=== PATIENT | female | born 1970 | race African-American/Black ===

== ENCOUNTER 2018-04-29 16:17 | Emergency (ER) | payer OTHER ==
[2018-04-29 16:40] VITALS: BP 136/82; PULSE 66; TEMP 98.3; BMI 35.5
--- NOTE | 2018-04-29 17:14 | PDOC ---
History of Present Illness - General Chief Complaint: Injury Stated Complaint: INJURY - History of Present Illness Initial Comments: 47-year-old female without any significant comorbidities only depression which she takes Celexa for presents for evaluation of headache after trauma. She states she was hit by a steel beam while at work on the left side of her head. She denies nausea or vomiting but she does have a progressively increasing headache on the right side. She was hit on the left side of her head. 04/29/18 17:12 Past History - Past Medical History Allergies/Adverse Reactions: Allergies Allergy/AdvReac Type Severity Reaction Status Date / Time codeine Allergy Verified 04/29/18 16:37 Home Medications: Ambulatory Orders NK [No Known Home Medication] 04/29/18 COPD: No GI Disorders: Yes (GERD) - Suicide/Smoking/Psychosocial Hx Smoking History: Never smoked Have you smoked in the past 12 months: No Information on smoking cessation initiated: No Hx Alcohol Use: No Drug/Substance Use Hx: No Substance Use Type: None Review of Systems - Review of Systems Neurological: Yes: Headache All Other Systems: Reviewed and Negative *Physical Exam - Vital Signs Last Vital Signs Temp Pulse Resp BP Pulse Ox 98.3 F 66 18 136/82 100 04/29/18 16:37 04/29/18 16:37 04/29/18 16:37 04/29/18 16:37 04/29/18 16:37 - Physical Exam Comments: GENERAL: The patient is awake, alert, and fully oriented, in no acute distress. HEAD: There is a small dermal avulsion on the anterior aspect of the left parietal scalp EYES: Pupils equal, round and reactive to light, extraocular movements intact, sclera anicteric, conjunctiva clear. ENT: Ears normal, nares patent, oropharynx clear without exudates. Moist mucous membranes. NECK: Normal range of motion, supple without lymphadenopathy, JVD, or masses. LUNGS: Breath sounds equal, clear to auscultation bilaterally. No wheezes, and no crackles. HEART: Regular rate and rhythm, normal S1 and S2 without murmur, rub or gallop. ABDOMEN: Soft, nontender, normoactive bowel sounds. No guarding, no rebound. No masses. EXTREMITIES: Normal range of motion, no edema. No clubbing or cyanosis. No cords, erythema, or tenderness. NEUROLOGICAL: Cranial nerves II through XII grossly intact. Normal speech, normal gait. Romberg is negative PSYCH: Normal mood, normal affect. SKIN: Warm, Dry, normal turgor, no rashes or lesions noted. 04/29/18 17:12 ED Treatment Course - RADIOLOGY Radiology Studies Ordered: Category Date Time Status HEAD CT WITHOUT CONTRAST [CT] Stat CT Scan 04/29/18 17:11 Ordered Medical Decision Making - Medical Decision Making I will get a CAT scan of her head her headache is getting progressively worse since her injury 04/29/18 17:13 *DC/Admit/Observation/Transfer Diagnosis at time of Disposition: Closed head injury - Discharge Dispostion Disposition: HOME Condition at time of disposition: Stable Decision to Admit order: No - Referrals Referrals: Omid Zaldivar [Non Staff, Medical] - - Patient Instructions Printed Discharge Instructions: DI for Closed Head Injury Additional Instructions: Your CAT scan today was negative. Only take Tylenol for pain. Avoid strenuous activities. Follow-up with your primary care physician within the next 1-2 days for clearance back to work. He should not work or do any strenuous activity or you have a headache. He may only take Tylenol for your headache at this point. - Post Discharge Activity
== END 2018-04-29 19:27 | disposition home or self-care (01) ==
LOC: JERFT 16:17
DX: S09.90XA Unspecified injury of head, initial encounter (principal); W22.09XA Striking against other stationary object, initial encounter; Y93.89 Activity, other specified; Y92.9 Unspecified place or not applicable; Y99.0 Civilian activity done for income or pay
CPT/HCPCS: 70450-TC; 84703; 99281-25

== ENCOUNTER 2019-04-11 09:34 | Emergency (ER) | payer BC | END 2019-04-11 10:15 | disposition home or self-care (01) | LOC: FER 09:34 ==

== ENCOUNTER 2020-07-03 19:33 | Emergency (ER) | payer BC, OTHER ==
[2020-07-03 19:38] VITALS: BP 167/72; PULSE 84; TEMP 98.4; BMI 37.1
[2020-07-03] MEDS ORDERED: IBUPROFEN 400 MG TABLET (FP) PO ONE ×2 (20:56→21:44)
--- NOTE | 2020-07-03 21:12 | PDOC ---
History of Present Illness - General Chief Complaint: Edema Stated Complaint: R LEG PAIN Time Seen by Provider: 07/03/20 20:21 History Source: Patient Exam Limitations: No Limitations - History of Present Illness Initial Comments: 07/03/20 21:01 HISTORY OF PRESENT ILLNESS: 50-year-old female presents emergency department for right leg pain since 06/20. Patient reports she [place] the [employer] when she was trying to stop the rental car accidentally got her right leg caught underneath the wheels of the cart. Patient is now had swelling in her right lower leg and pain to the calf. Patient has not had any evaluation since the injury occurred. No recent travel or sick contacts. PAST MEDICAL HISTORY: Denies past medical history SURGICAL HISTORY: Denies ALLERGIES: Codeine REVIEW OF SYSTEMS General/Constitutional: Denies fever or chills. Denies weakness, weight change. HEENT: Denies change in vision. Denies ear pain or discharge. Denies sore throat. Cardiovascular: Denies chest pain or shortness of breath. Respiratory: Denies cough, wheezing, or hemoptysis. Gastrointestinal: Denies nausea, vomiting, diarrhea or constipation. Denies rectal bleeding. Genitourinary: Denies dysuria, frequency, or change in urination. Musculoskeletal: See HPI Skin and breasts: Denies rash or easy bruising. Neurologic: Denies headache, vertigo, loss of consciousness, or loss of sen sation. Psychiatric: Denies depression or anxiety. Endocrine: Denies increased thirst. Denies abnormal weight change. Hematologic/Lymphatic: Denies anemia, easy bleeding, or history of blood clots. Allergic/Immunologic: Denies hives or skin allergy. Denies latex allergy. PHYSICAL EXAM General Appearance: Well-appearing, appropriately dressed. No apparent distress, no intoxication. Vascular Pulses: Dorsalis-Pedis (R): 2+, Dorsalis-Pedis (L): 2+ Gastrointestinal/Abdominal: Normal bowel sounds. Abdomen soft, non-distended. No tenderness or rebound tenderness. No organomegaly, pulsatile mass, guarding, hernia, hepatomegaly, splenomegaly. Lymphatic: No adenopathy, tenderness. Musculoskeletal/Extremities: No CVA tenderness. No tenderness to extremities, pedal edema, swelling, erythema or deformity. Right calf is tight with edema present. No erythema noted. No palpable cords or masses present. No bony tenderness to the right lower extremity. Full active range of motion noted. Neurovascularly intact. Integumentary: Appropriate color, dry, warm. No cyanosis, erythema, jaundice or rash Past History - Medical History Allergies/Adverse Reactions: Allergies Allergy/AdvReac Type Severity Reaction Status Date / Time codeine Allergy Verified 07/03/20 19:38 Home Medications: Ambulatory Orders Cholecalciferol (Vitamin D3) [Vitamin D3] 2,000 unit PO DAILY 04/11/19 Citalopram Hydrobromide [Celexa -] 10 mg PO DAILY 04/11/19 Multivit-Min/Iron/Folic/Lutein [Centrum Silver Women Tablet] 1 each PO DAILY 04/11/19 Triamcinolone 0.1% Cream [Aristocort 0.1% Cream -] 1 applic TP BID #60 grams 04/11/19 Turmeric 04/11/19 COPD: No GI Disorders: Yes (GERD) Psychiatric Problems: Yes (ANXIETY) - Reproductive History Is Patient Now?: No - Psycho-Social/Smoking History Smoking History: Never smoked Have you smoked in the past 12 months: Yes 'Breaking Loose' booklet given: 04/11/19 - Substance Abuse Hx (Audit-C & DAST Scrn) How often the patient has a drink containing alcohol: 2-4 times / month Number of drinks the patient has on a typical day: 1 or 2 How often the patient has six or more drinks on one occasion: Never Score: In Men: 4 or > Positive; In Women: 3 or > Positive: 2 Screen Result (Pos requires Nsg. Audit-10AR): Negative In the last yr the pt used illegal drug/Rx for NonMed reason: No Score: Yes response is considered Positive: 0 Screen Result (Positive result requires Nsg. DAST-10): Negative *Physical Exam - Vital Signs Last Vital Signs Temp Pulse Resp BP Pulse Ox 98.4 F 84 18 167/72 98 07/03/20 19:35 07/03/20 19:35 07/03/20 19:35 07/03/20 19:35 07/03/20 19:35 Procedures - Consent Consent obtained: Verbal, From Patient - Splinting Splint Location: Right: Ankle Pre-Proc Neuro Vasc Exam: normal Hand-Made Type: orthoglass Splint Type: Yes: Sugar Tong Post-Proc Neuro Vasc Exam: normal, unchanged from pre-exam Sling: No Complications: No Progress: 07/03/20 23:27 Patient tolerated well ED Treatment Course - RADIOLOGY Radiology Studies Ordered: Category Date Time Status LEG TIB/FIB-RIGHT [RAD] Stat Radiology 07/03/20 20:55 Ordered DUPLEX VASCUL US-1 LEG [US] Stat Ultrasound 07/03/20 20:55 Ordered Medical Decision Making - Medical Decision Making 07/03/20 21:12 A/P: [age]-year-old woman with right calf pain status post trauma 13 days ago Tenderness to the right calf Edema noted 2+ DP pulses present bilaterally Full active range of motion of the right lower extremity No bony tenderness, crepitus, deformity or step-off noted upon palpation of the right lower extremity X-rays Ultrasound Motrin 800 mg orally now Reassess 07/03/20 23:02 Ultrasound is read by Dr. Michel: There is no sonographic evidence of deep vein thrombosis. No obvious popliteal fossa cyst is visualized. X-rays read by me: Fracture presence of the midshaft fibula of the right leg. New calcifications represented healing present to fracture ends. Splint-see procedure note for details Discharge home with orthopedic follow-up. I discussed the physical exam findings, ancillary test results and final diagnoses with the patient. I answered all of the patient's questions. The patient was satisfied with the care received and felt comfortable with the discharge plan and treatment plan. The patient will call their primary care physician within 24 hours to arrange follow-up and will return to the Emergency Department with any new, persistent or worsening symptoms. Portions of this note have been documented using voice recognition software. As a result, errors may occur in the tea blender process. Effort has been made to correct all grammatical and tea blender error, but some may have been missed which may produce sporadic inaccurate tea blender or nonsensical phrases. Discharge - Discharge Information Problems reviewed: Yes Clinical Impression/Diagnosis: Fracture, fibula closed, shaft Qualifiers: Encounter type: initial encounter Fracture morphology: unspecified fracture morphology Laterality: right Qualified Code(s): S82.401A - Unspecified fracture of shaft of right fibula, initial encounter for closed fracture Condition: Stable Disposition: HOME - Admission No - Follow up/Referral Referrals: Dana Christianson MD [Primary Care Provider] - Osei Bassett MD [Staff Physician] - - Patient Discharge Instructions Additional Instructions: [email or web address] You be given a referral for an orthopedist. Call to schedule appointment for reevaluation of your pain. Your emergency department visit is incomplete until you follow-up with your regular doctor. Take Tylenol 2-500 mg tablets every 6 hours as needed for pain. Take Motrin 3-200 mg tablets every 6 hours as needed for pain. These medications do not require a prescription as they are [id number]. Apply ice to affected areas to help relieve pain. Do not leave ice on for more than 20 minutes at a time. Return to the emergency department for any new or worsening symptoms. Thank you very much for choosing us to provide your emergent health care needs. - Post Discharge Activity Work/Back to School Note: Back to Work
--- NOTE | 2020-07-03 21:26 | PDOC ---
*Physical Exam - Vital Signs Last Vital Signs Temp Pulse Resp BP Pulse Ox 98.4 F 84 18 167/72 98 07/03/20 19:35 07/03/20 19:35 07/03/20 19:35 07/03/20 19:35 07/03/20 19:35 Medical Decision Making - Medical Decision Making 07/03/20 21:26 Patient seen by the advanced practice provider under my supervision. Ancillary testing reviewed as necessary. I agree with plan as outlined by the advanced practice provider. Discharge - Discharge Information Problems reviewed: Yes Clinical Impression/Diagnosis: Leg swelling - Follow up/Referral Referrals: Dana Christianson MD [Primary Care Provider] - - Patient Discharge Instructions - Post Discharge Activity
== END 2020-07-03 23:58 | disposition home or self-care (01) ==
LOC: JER 19:33
PROC: 2W3QX1Z Immobilization of Right Lower Leg using Splint (ICD-10-PCS; principal; 2020-07-03)
DX: S82.401A Unspecified fracture of shaft of right fibula, initial encounter for closed fracture (principal)
CPT/HCPCS: 73590-TC-RT-FY; 93971-TC; 99284-25

== ENCOUNTER 2024-06-04 16:52 | Emergency (ER) | payer BC, OTHER ==
[2024-06-04 17:09] VITALS: BP 153/83; PULSE 80; RESP 18; TEMP 99.6; BMI 34.4
[2024-06-04] MEDS ORDERED: CEPHALEXIN MONOHYDRATE 500 MG CAPSULE (UD) ONE (18:59)
[2024-06-04] MEDS: CEPHALEXIN MONOHYDRATE 500 MG CAPSULE (UD) PO ONE (19:09)
== END 2024-06-04 19:10 | disposition home or self-care (01) ==
LOC: FER 16:52
DX: L03.115 Cellulitis of right lower limb (principal); M79.89 Other specified soft tissue disorders
CPT/HCPCS: 73590-TC-RT-FY; 93971-TC; 99284-25

== ENCOUNTER 2024-06-18 16:25 | Inpatient (IN) | payer OTHER, BC ==
[2024-06-18 17:12] LABS: HEMOGLOBIN 13.7 G/dL (10.7-15.3); MCH 23.4 pg (25.7-33.7); MCHC 30.5 g/dl (32.0-36.0); MEAN CELL VOLUME 76.6 fl (80-96); MEAN PLT VOLUME 9.5 fl (7.5-11.1); PLATELET COUNT 232.7 10^3/uL (134-434); RBC 5.87 10^6/uL (3.60-5.2); RDW 17.1 % (11.6-15.6)
[2024-06-18] MEDS: CLINDAMYCIN 900 MG PREMIX IVPB 900 MG/50 ML BAG IVPB ONE (17:31)
[2024-06-18 17:48] LABS: ALBUMIN 5.2 g/dl (3.4-5.0); ALK PHOS 40 U/L (45-117); ANION GAP 11 mmol/L (4-13); BILIRUBIN,TOTAL 0.4 mg/dl (0.2-1); CALCIUM 10.3 mg/dl (8.5-10.1); CHLORIDE 103 mmol/L (98-107); CO2 26 mmol/L (21-32); CREATININE 0.9 mg/dl (0.6-1.3); GLUCOSE,RANDOM 88 mg/dl (74-106); POTASSIUM 3.8 mmol/L (3.5-5.1); SGOT/AST 20 U/L (15-37); SGPT/ALT 26 U/L (7-52); SODIUM 140 mmol/L (136-145); TOT PROT 7.9 g/dl (6.4-8.2)
[2024-06-18 18:04] LABS: PLATELET ESTIMATE ADEQUATE
[2024-06-18] MEDS ORDERED: ACETAMINOPHEN 325 MG TABLET (FP) PO PRN (20:47)
[2024-06-18 21:52] VITALS: BMI 35.6
[2024-06-19] MEDS: CLINDAMYCIN 900 MG PREMIX IVPB 900 MG/50 ML BAG IVPB SCH (01:40)
[2024-06-19 06:15] VITALS: RESP 16
[2024-06-19 08:35] LABS: HEMATOCRIT 39.7 % (32.4-45.2); MCH 23.2 pg (25.7-33.7); MCHC 30.3 g/dl (32.0-36.0); MEAN CELL VOLUME 76.4 fl (80-96); MEAN PLT VOLUME 10.1 fl (7.5-11.1); PLATELET COUNT 226.1 10^3/uL (134-434); RBC 5.19 10^6/uL (3.60-5.2); WHITE BLOOD COUNT 3.3 10^3/uL (4.0-10.8)
[2024-06-19 08:53] LABS: CALCIUM 9.6 mg/dl (8.5-10.1); CREATININE 0.8 mg/dl (0.6-1.3); POTASSIUM 4.7 mmol/L (3.5-5.1)
[2024-06-19] MEDS: ENOXAPARIN NA (PORCINE) 40 MG/0.4 ML DISP.SYRIN SQ SCH (10:36)
[2024-06-20 13:40] VITALS: BP 145/81; PULSE 74; TEMP 98.3
[2024-06-20] MEDS ORDERED: CLINDAMYCIN HCL 150 MG CAPSULE (FP) PO ONE (15:00)
== END 2024-06-20 14:36 | disposition home or self-care (01) | DRG 383 ==
LOC: FER 16:25 → FM/S 20:06
PROVIDERS: ADMIT Internal Medicine
DX: L03.115 Cellulitis of right lower limb (principal); F41.8 Other specified anxiety disorders; K21.9 Gastro-esophageal reflux disease without esophagitis; E78.5 Hyperlipidemia, unspecified; E66.9 Obesity, unspecified; Z68.35 Body mass index [BMI] 35.0-35.9, adult; F17.290 Nicotine dependence, other tobacco product, uncomplicated
CPT/HCPCS: 36415; 80048; 80053; 85027; 93005; 99285-25